=== PATIENT | male | born 1975 | race Two or more races ===

== ENCOUNTER 2020-02-20 19:19 | Emergency (ER) | payer SELFPAY ==
[~2020-02-20] VITALS: Ht 175.3 cm; Wt 72.2 kg
[2020-02-20 19:20] VITALS: BP 123/79
[2020-02-20] MEDS ORDERED: IV RINGERS SOLUTION,LACTATED 1,000 ML IV SCH (19:31)
--- NOTE | 2020-02-20 19:52 | EKG ---
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
[2020-02-20 20:01] LABS: BARBITURATES NEG (NEG); BENZODIAZEPINES NEG (NEG); CANNABINOIDS NEG (NEG); COCAINE NEG (NEG); METHADONE NEG (NEG); OPIATES NEG (NEG); PHENCYCLIDINE NEG (NEG)
[2020-02-20 20:03] LABS: BACTERIA,URINE 0 /HPF (0-FEW); BILIRUBIN,URINE NEG (NEG); CLARITY,URINE CLEAR; COLOR,URINE YELLOW; GLUCOSE,URINE NEG (NEG); NITRITE,URINE NEG (NEG); UROBILINOGEN,URINE 0.2 mg/dL (0.2 mg/dL)
[2020-02-20 20:07] LABS: AMPHETAMINE/METHAMPHETAMINE POS (NEG)
--- NOTE | 2020-02-20 20:08 | PHYS DOC ---
Past History Past Medical History: Anxiety, Depression, Schizophrenia Smoking: Cigarettes Alcohol Use: Occasionally Drug Use: Amphetamine, Marijuana, Methamphetamine General Adult EDM: Chief Complaint: DEHYDRATION HPI: HPI: ".. I think I dehydrated... I have been walking all day... I got hydrated dehydrated the other day... Hitchhiking to [facility] to see my sister.. But I am getting muscle cramps and feel really dry...".. " I would like to be admitted tonight so I can have a place to sleep tonight...." Patient is a 44 year old male who presents with above history of muscle c ramping, tachycardia and fatigue. Patient has underlying health problems of depression, polysubstance abuse and schizophrenia. Patient advised not currently taking any of his depression meds or schizophrenia meds. Patient denies any current presentation of suicidal ideation or homicidal ideation. Patient currently denies any hallucinations or delusional manifestations. Patient states his urine was concentrated. Denies any meth use today . Pt. admits to meth use yesterday.. Patient seen at out patient clinic yesterday for similar presentation. Patient does smoke. No recent travel outside the [place] but states he is in route to [facility] to see his sister. Pt. states he plans of hitch hiking to [place]. Pt. he also stopped at [facility] out pt. clinic in [facility]. Review of Systems: Review of Systems: Constitutional: Denies fever or chills Eyes: Denies change in visual acuity HENT: Denies nasal congestion or sore throat Respiratory: Denies cough or shortness of breath Cardiovascular: Denies chest pain or edema GI: Denies abdominal pain, nausea, vomiting, bloody stools or diarrhea : Denies dysuria Musculoskeletal: Denies back pain or joint pain Integument: Denies rash Neurologic: Denies headache, focal weakness or sensory changes Endocrine: Denies polyuria or polydipsia Lymphatic: Denies swollen glands Psychiatric: Denies depression or anxiety Heart Score: HEART Score for Chest Pain: HEART Score for Chest Pain Response (Comments) Value ECG Normal 0 Age >45 - < 65 1 Risk Factors 1 or 2 Risk Factors 1 Troponin < Normal Limit 0 Total 2 Risk Factors: Risk Factors: DM, Current or recent (<one month) smoker, HTN, HLP, family history of CAD, obesity. Risk Scores: Score 0 - 3: 2.5% MACE over next 6 weeks - Discharge Home Score 4 - 6: 20.3% MACE over next 6 weeks - Admit for Clinical Observation Score 7 - 10: 72.7% MACE over next 6 weeks - Early Invasive Strategies Family History: Family History: Noncontributory Current Medications: Current Meds: Current Medications Medications (Trade) Dose Ordered Sig/Tony Start Time Stop Time Status Last Admin Dose Admin Lactated Ringer's 1,000 ml @ 1,000 mls/hr Q1H 02/20/20 19:31 02/20/20 20:30 Allergies: Allergies: Allergies Coded Allergies Type Severity Reaction Last Updated Verified haloperidol Allergy Severe Throat Swelling 02/20/20 Yes Physical Exam: PE: Constitutional: States moderate acute distress, non-toxic appearance. [] HENT: Normocephalic, atraumatic, bilateral external ears normal, oropharynx , dry, no oral exudates, nose normal. [] Eyes: PERRLA, EOMI, conjunctiva normal, no discharge. Pupils very dilated. Neck: Normal range of motion, no tenderness, supple, no stridor. [] Cardiovascular: Tachycardia heart rate regular rhythm, no murmur [] Lungs & Thorax: Bilateral breath sounds equal apex with scattered wheezes auscultation [] Abdomen: Bowel sounds normal, soft, no tenderness, no masses, no pulsatile masses. [Does have some mild bruising on his abdomen] Skin: Warm, dry, no erythema, no rash. Poor turgor. Sunburn. Extremities: Complains of muscle cramps, no cyanosis, no clubbing, ROM intact, no edema. [] Neurologic: Alert and oriented X 3, normal motor function, normal sensory function, no focal deficits noted. [] Psychologic: Affect anxious, judgement normal, mood normal. Patient denies suicidal ideation. Patient denies hallucinations. Patient denies any active delusions. EKG: EKG: My interpretation of EKG shows a sinus rhythm at 94 bpm. No findings of acute STEMI or contralateral changes or acute pathologic surgical changes [] Radiology/Procedures: Radiology/Procedures: [] Course & Med Decision Making: Course & Med Decision Making Pertinent Labs and Imaging studies reviewed. (See chart for details) Patient to push fluids. Patient avoid use of tobacco and methamphetamine. Patient was given instruction on follow-up with counseling center. Patient encouraged to get back on his psych meds. Patient encouraged to keep follow-up with primary. Patient return if any concerns. Pt. became angry when he was advised he could not be admitted for just a place to sleep tonight. Left. without formal discharge. Pt. was advised he could follow at Counseling center if he remained in [facility] for his mental health issues. Impression: 1. Mild dehydration 2. Elevated CK 847 3. Methamphetamine use 4. Tobacco use 5. History of depression 6. History of schizophrenia 7. History of medical noncompliance with meds and plans Dragon Disclaimer: Dragon Disclaimer: This electronic medical record was generated, in whole or in part, using a voice recognition dictation system. Departure Departure: Disposition: 01 HOME/RESIDENCE PRIOR TO ADM Condition: STABLE Dragon Disclaimer This chart was dictated in whole or in part using Voice Recognition software in a busy, high-work load, and often noisy Emergency Department environment. It may contain unintended and wholly unrecognized errors or omissions. Dragon Disclaimer This chart was dictated in whole or in part using Voice Recognition software in a busy, high-work load, and often noisy Emergency Department environment. It may contain unintended and wholly unrecognized errors or omissions. CEE ALLEN MD February 20, 2020 20:08
[2020-02-20 20:11] LABS: BASO # 0.1 x10^3/uL (0.0-0.2); BASO % 1 % (0-3); EOS # 0.9 x10^3/uL (0.0-0.7); EOS % 11 % (0-3); HEMATOCRIT 40.8 % (39.0-53.0); LYMPH # 1.9 x10^3/uL (1.0-4.8); LYMPH % 23 % (24-48); MEAN CORPUSCULAR HEMOGLOBIN 32 pg (25-35); MEAN CORPUSCULAR HGB CONC 34 g/dL (31-37); MEAN CORPUSCULAR VOLUME 93 fL (79-100); MONO # 0.7 x10^3/uL (0.0-1.1); MONO % 8 % (0-9); NEUT # 4.9 x10^3uL (1.8-7.7); NEUT % 57 % (31-73); PLATELET COUNT 381 x10^3/uL (140-400); RED BLOOD COUNT 4.39 x10^6/uL (4.30-5.70); RED CELL DISTRIBUTION WIDTH 14.7 % (11.5-14.5); WHITE BLOOD COUNT 8.5 x10^3/uL (4.0-11.0)
[2020-02-20 20:19] LABS: CALCIUM 8.8 mg/dL (8.5-10.1); GFR 80.4; POTASSIUM 4.1 mmol/L (3.5-5.1)
== END 2020-02-20 20:40 | disposition home or self-care (01) ==
LOC: ER 19:19
DX: E86.0 Dehydration (principal); R74.8 Abnormal levels of other serum enzymes; F32.9 Major depressive disorder, single episode, unspecified; F15.90 Other stimulant use, unspecified, uncomplicated; F20.9 Schizophrenia, unspecified; F41.9 Anxiety disorder, unspecified; F17.210 Nicotine dependence, cigarettes, uncomplicated; F12.90 Cannabis use, unspecified, uncomplicated; Z88.8 Allergy status to other drugs, medicaments and biological substances
CPT/HCPCS: 36415; 80048; 80307; 81001; 82550; 83735; 84484; 85025; 93005; 96360; 99284; J7120